=== PATIENT | male | born 1980 | race Caucasian/White ===

== ENCOUNTER 2025-09-02 18:19 | Emergency (ER) | payer SELFPAY ==
--- NOTE | 2025-09-02 18:30 | NUR ---
Called. No response
--- NOTE | 2025-09-02 18:35 | NUR ---
Called No response
--- NOTE | 2025-09-02 18:40 | NUR ---
Called. No response. Eloped
== END 2025-09-02 18:41 | disposition home or self-care (01) ==
LOC: ER 18:32
DX: Z53.21 Procedure and treatment not carried out due to patient leaving prior to being seen by health care provider (principal)